=== PATIENT | female | born 1965 | race Caucasian/White ===

== ENCOUNTER 2016-11-19 16:04 | Emergency (ER) | payer OTHER ==
--- NOTE | ~2016-11-19 | EKG ---
PATIENT: EDD ARENAS UNIT #: [id number] Ventricular Rate: 98 BPM Atrial Rate: 98 BPM P-R Interval: 134 ms QRS Duration: 72 ms Q-T Interval: 356 ms QTC Calculation(Bezet): 454 ms P Marlin: 52 degrees Calculated R Marlin: -21 degrees Calculated T Marlin: 23 degrees Diagnosis Line: Normal sinus rhythm Diagnosis Line: RSR' or QR pattern in V1 suggests right Diagnosis Line: ventricular conduction delay Diagnosis Line: Baseline wander Otherwise normal ECG Diagnosis Line: No previous ECGs available Diagnosis Line: Confirmed by JAYLA OCAMPO MD ([id number]) on 11/21/2016 Diagnosis Line: 9:40:18 AM INTERPRETING MD: DAMARIS UNDERWOOD
--- NOTE | ~2016-11-19 | CT71 ---
[facility] A Service [facility] RADIOLOGY TEXT RESULTS PATIENT: EDD ARENAS LOCATION: SED : 67 UNIT #: [id number] AGE: [address]: SEBASTIAN ULRICH SEX: F ORDER DR: [id number] [place] [id number] E MR#: [id number] Acc #: [id number] NAME: EDD ARENAS. : 1965 SEX: F STUDY DATE/TIME: 11/19/2016 16:37 UNIT: SED ROOM: STUDY DESCRIPTION: CT Head Wo Contrast Attending Physician: Sebastian Ulrich Ordering Physician: Deisi Peña Pa-C Primary Care Physician: Michael aCry M.D. MEDICAL IMAGING REPORT This report is preliminary unless electronic signature is present. EXAM CT head without contrast, 11/19/2016 HISTORY 50-year-old female with dizziness for 2 weeks. COMPARISON None. TECHNIQUE Routine unenhanced axial images performed through the brain. This CT exam was performed with one or more of the following radiation dose reduction techniques: Automatic exposure control, adjustment of mA and/or kV according to patient size, and iterative reconstruction. FINDINGS No hemorrhage, acute infarction, mass lesion, or abnormal extraaxial fluid collection. No midline shift or focal mass effect. Ventricular system normal in size and configuration. No acute bony abnormality. Visualized paranasal sinuses and mastoid air cells are clear. IMPRESSION No acute intracranial abnormality. Dictated by... Tom De Jesus M.D. THIS IS AN ELECTRONICALLY VERIFIED REPORT Tom De Jesus M.D. at 11/20/2016 4:43 PM ANTHONY/franklin [facility] A Service of [facility] RADIOLOGY TEXT RESULTS PATIENT: EDD ARENAS LOCATION: SED : 67 UNIT #: [id number] AGE: [address]: SEBASTIAN ULRICH SEX: F ORDER DR: TD: 11/19/2016 19:39 JOB #: [id number] MEDICAL IMAGING REPORT Page 1 of 1
[~2016-11-19 16:04] MED LIST: ALBUTEROL17 GM INH; ALLERGY MEDS; AMITRYPTYLINE PO; ANSAID100 MG PO; AURALGAN AD; BENTYL10 MG PO; BENTYL20 MG PO; DESYREL50 M1 PO; DEXAMETHASONE0.75 MG; DICLOFENAC PO; DOXYCYCLINE HY100 M1 PO; ERY-TAB500 MG PO; FLAGYL PO; FLEXERIL PO; HYCODAN60 ML 5MG/ PO; IBUPROFEN PO; KEPPRA250 MG PO; KEPPRA500 M2 PO; KEPPRA750 MG PO; LEVETIRACETAM250 MG; LORTAB 7.5-5001 TAB PO; MACROBID 100 M100 MG PO; MEDROL4 MG/DOSE- PO; METOCLOPRAMIDE H5 MG PO; MIDODRINE HCL2.5 MG PO; NABUMETONE PO; NAPROSYN500 MG PO; NAPROXEN; NASONEX17 GM; OMEPRAZOLE20 M1; OXYIR5 MG PO; PAIN PILL; PERCOCET PO; PERCOCET5/325 PO; PERCOCET7.5 PO; PHENERGAN PO; PHENERGAN12.5 MG PO; PHENERGAN25 MG PO; PRO-AMATINE5 M1; PYRIDIUM PO; RANITIDINE HCL150 M1; RANITIDINE HCL150 M1 PO; REGLAN; REGLAN10 MG PO; REGLAN5 MG PO; TYLENOL #3 PO; UNKNOWN PAIN MED; VOLTAREN75 MG PO; ZITHROMAX1 G/PKT PO; [UNRECOGNIZED DRUG - OTHER]; [UNRECOGNIZED DRUG - OTHER]
[2016-11-19 16:07] LABS: URINE SOURCE CLEAN CATCH
[2016-11-19 16:10] LABS: URINE APPEARANCE CLEAR; URINE BILIRUBIN NEG (NEG); URINE BLOOD NEG (NEG); URINE COLOR YELLOW; URINE GLUCOSE NEG (NORM); URINE KETONE NEG (NEG); URINE LEUKOCYTE ESTERASE 1+ (NEG); URINE NITRATE POS (NEG); URINE PROTEIN NEG (NEG); URINE SPECIFIC GRAVITY <=1.005 (1.003-1.035); URINE UROBILINOGEN 0.2 MG/DL (NORM)
[2016-11-19 16:16] LABS: MICRO INDICATED? YES
[2016-11-19 16:41] LABS: BASOPHIL# 0.1 X10e3 (0-0.3); BASOPHIL% 0.7 % (0-2.5); DIFF IND NO; EOSINOPHIL# 0.1 X10e3 (0-0.7); EOSINOPHIL% 1.1 % (0.0-7.0); HEMATOCRIT 43.4 % (35.0-45.0); HEMOGLOBIN 14.1 gm/dL (12.0-16.0); LYMPHOCYTE# 2.4 X10e3 (1.0-3.5); LYMPHOCYTE% 25.6 % (17.0-45.0); MEAN CORPUSCULAR HEMOGLOBIN 27.9 PG (28-34); MEAN CORPUSCULAR HGB CONC 32.4 g/dL (30-36); MEAN PLATELET VOLUME 9.2 FL (6.5-11.5); MONOCYTE# 0.7 X10e3 (0-1.0); NEUTROPHIL# 6.1 X10e3 (1.5-7.1); NEUTROPHIL% 65.6 % (40-75); PLATELET COUNT 236 X10e3 (140-420); RED BLOOD COUNT 5.04 X10e (3.90-5.30); RED CELL DISTRIBUTION WIDTH 15.2 % (11.0-15.5); WHITE BLOOD COUNT 9.4 X10e3 (4.0-10.5)
[2016-11-19 16:46] LABS: POC - CKMB <1.0 ng/mL (0.0-7.9); POC - TROPONIN <0.05 ng/mL (<=0.05)
[2016-11-19 16:49] LABS: CULTURE INDICATED? YES; URINE BACTERIA 2+ (NEG); URINE RBC 0-2 /[HPF] (0-2); URINE SQUAMOUS EPITHELIAL CELL MODERATE /[HPF]
[2016-11-19 17:05] LABS: ALBUMIN SERUM 3.3 g/dL (3.5-5.0); BILIRUBIN, DIRECT 0.1 mg/dL (0.0-0.2); BILIRUBIN,INDIRECT 0.1 mg/dL (0.0-0.9); BILIRUBIN,TOTAL 0.2 mg/dL (0.2-2.0); BUN/CREATININE RATIO 11.11; CREATININE SERUM 0.9 mg/dL (0.6-1.4); GLOM FILT RATE Estimated 75.1 mL/min (>60); PROTEIN TOTAL SERUM 6.4 g/dL (6.0-8.3)
== END 2016-11-19 18:32 | disposition home or self-care (01) ==
LOC: SED 16:04
PROVIDERS: Nurse Practitioner; Physician Assistant
DX: N39.0 Urinary tract infection, site not specified (principal); R42 Dizziness and giddiness; G43.909 Migraine, unspecified, not intractable, without status migrainosus; Z90.710 Acquired absence of both cervix and uterus; F17.210 Nicotine dependence, cigarettes, uncomplicated; Z88.0 Allergy status to penicillin; Z88.2 Allergy status to sulfonamides
CPT/HCPCS: 36415; 70450; 80048; 80076; 81003; 82553; 84484; 85025; 87086; 87088; 87186; 93005; 96361; 96374; 99284; J0696

== ENCOUNTER 2016-11-23 14:34 | Emergency (ER) | payer OTHER ==
--- NOTE | ~2016-11-23 | CT4 ---
[facility] A Service of [facility] RADIOLOGY TEXT RESULTS PATIENT: EDD ARENAS LOCATION: SED : 67 UNIT #: [id number] AGE: [address]: Av Khalil DO SEX: F ORDER DR: [id number] [place] [id number] E MR#: [id number] Acc #: [id number] NAME: EDD ARENAS : 1965 SEX: F STUDY DATE/TIME: 11/23/2016 15:44 UNIT: SED ROOM: STUDY DESCRIPTION: CT Abd and Pelv Wo Cont Ordering Physician: Robin Khalil Primary Care Physician: Michael Cary M.D. MEDICAL IMAGING REPORT This report is preliminary unless electronic signature is present. EXAM CT abdomen and pelvis without contrast INDICATIONS Right-sided flank pain for [address] of the abdomen and pelvis was performed without contrast. Coronal and sagittal reformatted images were obtained. This CT exam was performed with one or more of the following radiation dose reduction techniques: automatic exposure control, adjustment of mA and/or kV according to patient size, and iterative reconstruction. COMPARISON STUDIES 08/08/2011. FINDINGS There is linear scarring or atelectasis within the lung bases. The liver is unremarkable. The gallbladder, spleen and left kidney unremarkable. There is a tiny non-obstructing stone within the mid-pole right kidney. The adrenal glands and pancreas are unremarkable. PELVIS: The colon is unremarkable. The appendix is normal. Bone windows demonstrate a sacral stimulator. IMPRESSION There is a tiny non-obstructing stone in the mid-pole of the right kidney. Exam is otherwise unremarkable. [facility] A Service of [facility] / [facility] RADIOLOGY TEXT RESULTS PATIENT: EDD ARENAS LOCATION: SED : 67 UNIT #: [id number] AGE: [address]: Av Khalil DO SEX: F ORDER DR: Dictated by... Blair Crum M.D. THIS IS AN ELECTRONICALLY VERIFIED REPORT Blair Crum M.D. at 11/24/2016 8:35 AM CHRIS/connie TD: 11/23/2016 21:23 JOB #: [id number] MEDICAL IMAGING REPORT Page 1 of 1
[2016-11-24 08:00] LABS: MICRO INDICATED? NO; URINE APPEARANCE CLEAR; URINE BILIRUBIN NEG (NEG); URINE BLOOD NEG (NEG); URINE COLOR YELLOW; URINE GLUCOSE NORM (NEG); URINE KETONE NEG (NEG); URINE LEUKOCYTE ESTERASE NEG (NEG); URINE NITRATE NEG (NEG); URINE PH 7.5 (5-8); URINE PROTEIN NEG (NEG); URINE SOURCE CLEAN CATCH; URINE SPECIFIC GRAVITY 1.015 (1.003-1.035)
[2016-11-24 08:01] LABS: BASOPHIL# 0.1 X10e3 (0-0.3); BASOPHIL% 1.1 % (0-2.5); DIFF IND NO; EOSINOPHIL# 0.2 X10e3 (0-0.7); HEMOGLOBIN 14.1 gm/dL (12.0-16.0); LYMPHOCYTE# 2.9 X10e3 (1.0-3.5); MEAN CELL VOLUME 85.8 FL (83-96); MEAN CORPUSCULAR HEMOGLOBIN 28.1 PG (28-34); MEAN CORPUSCULAR HGB CONC 32.7 g/dL (30-36); MEAN PLATELET VOLUME 9.1 FL (6.5-11.5); MONOCYTE# 0.8 X10e3 (0-1.0); MONOCYTE% 8.9 % (3.0-12.0); NEUTROPHIL# 4.8 X10e3 (1.5-7.1); PLATELET COUNT 238 X10e3 (140-420); RED CELL DISTRIBUTION WIDTH 15.1 % (11.0-15.5); WHITE BLOOD COUNT 8.7 X10e3 (4.0-10.5)
[2016-11-24 08:02] LABS: ALBUMIN SERUM 3.5 g/dL (3.5-5.0); BILIRUBIN,TOTAL 0.3 mg/dL (0.2-2.0); BUN/CREATININE RATIO 14.28; CALCIUM SERUM 9.1 mg/dL (8.4-10.2); CREATININE SERUM 0.7 mg/dL (0.6-1.4); GLOM FILT RATE Estimated 101.7 mL/min (>60); POTASSIUM 4.7 mmol/L (3.5-5.1); PROTEIN TOTAL SERUM 6.5 g/dL (6.0-8.3)
== END 2016-11-23 16:44 | disposition home or self-care (01) ==
LOC: SED 14:34
PROVIDERS: Emergency Medicine
DX: R10.9 Unspecified abdominal pain (principal); F17.210 Nicotine dependence, cigarettes, uncomplicated; Z79.899 Other long term (current) drug therapy; Z88.0 Allergy status to penicillin; Z88.2 Allergy status to sulfonamides
CPT/HCPCS: 36415; 74176; 80053; 81003; 85025; 99284; J1885; J2405